=== PATIENT | female | born 1990 | race Hispanic/Latino ===

== ENCOUNTER 2021-07-28 18:03 | Emergency (ER) | payer MEDICAID, OTHER ==
[~2021-07-28] VITALS: Ht 154.9 cm; Wt 70.3 kg
[2021-07-28 18:05] VITALS: BP 120/84
[2021-07-28 18:56] LABS: BASOPHILS % (AUTO) 0.7 % (0.0-5.0); HEMATOCRIT 40.3 % (36-48); LYMPHOCYTES % (AUTO) 31.6 % (21.0-51.0); MEAN CORPUSCULAR HEMOGLOBIN 30.5 pg (27.0-33.0); MEAN CORPUSCULAR HGB CONC 33.5 g/dL (32.0-36.0); MONOCYTES % (AUTO) 9.3 % (3.0-13.0); NEUTROPHILS % (AUTO) 53.9 % (40.0-77.0); PLATELET COUNT (AUTO) 249 K/uL (130-400); RED BLOOD CELL COUNT(AUTO) 4.43 MIL/uL (4.00-5.50); RED CELL DISTRIBUTION WIDTH 12.5 % (11.0-15.5); WHITE BLOOD COUNT (AUTO) 8.8 K/uL (4.8-10.8)
== END 2021-07-28 19:21 | disposition left against medical advice (07) ==
LOC: EDH 18:03
DX: M25.512 Pain in left shoulder (principal); N93.9 Abnormal uterine and vaginal bleeding, unspecified
CPT/HCPCS: 36415; 84702; 84703; 85025; 86850; 86900; 86901

== ENCOUNTER 2022-10-18 00:36 | Observation (INO) | payer MEDICAID ==
[~2022-10-18] VITALS: Ht 154.9 cm; Wt 80.1 kg
[2022-10-18 00:41] VITALS: BP 138/93
[2022-10-18 01:34] LABS: APPEARANCE,URINE CLEAR (CLEAR); BILIRUBIN,URINE NEGATIVE (NEGATIVE); COLOR,URINE LIGHT-YELLOW (YELLOW); GLUCOSE, URINE (UA) NEGATIVE (NEGATIVE); KETONES,URINE NEGATIVE (NEGATIVE); LEUKOCYTE ESTERASE ,URINE 250 Leu/uL (NEGATIVE); NITRATE,URINE NEGATIVE (NEGATIVE); OCCULT BLOOD,URINE NEGATIVE (NEGATIVE); PROTEIN,URINE NEGATIVE (NEGATIVE); UROBILINOGEN,URINE 0.2 mg/dL (0.2-1.0)
[2022-10-18 01:41] LABS: AMPHET/METH SCREEN,URINE NEGATIVE (NEGATIVE); BARBITURATE SCREEN, URINE NEGATIVE (NEGATIVE); BENZODIAZEPINES SCREEN,URINE NEGATIVE (NEGATIVE); CANNABINOID SCREEN,URINE NEGATIVE (NEGATIVE); COCAINE SCREEN,URINE NEGATIVE (NEGATIVE); OPIATE SCREEN,URINE NEGATIVE (NEGATIVE); PHENCYCLIDINE SCREEN,URINE NEGATIVE (NEGATIVE)
[2022-10-18 01:43] LABS: MUCUS,URINE RARE LPF (None Seen); SQUAMOUS EPITHELIAL CELL,UR MOD /HPF (0-2)
[2022-10-18] MEDS ORDERED: TERBUTALINE SULFATE VIAL 1MG/ML SQ SCH (02:00)
[2022-10-18] MEDS ORDERED: LACTATED RINGERS 1000ML IV PRN (02:00)
[2022-10-18] MEDS ORDERED: ASPI-1197 PO (02:34)
[2022-10-18] MEDS ORDERED: PREN1TAB80 PO (02:34)
[2022-10-18] MEDS ORDERED: FERR-82 PO (02:34)
== END 2022-10-18 03:30 | disposition home or self-care (01) ==
LOC: EDH 00:36 → LDH 00:37
PROVIDERS: ADMIT Obstetrics & Gynecology; ATTEND Obstetrics & Gynecology
DX: O62.9 Abnormality of forces of labor, unspecified (principal); Z3A.37 37 weeks gestation of pregnancy; Z79.899 Other long term (current) drug therapy
CPT/HCPCS: 59025; 96372; 96360; 96361; 80305; 87088; 81001; G0378 ×3; G0379; J7120; J3105